=== PATIENT | male | born 1970 | race Caucasian/White ===

== ENCOUNTER 2016-12-08 08:38 | Day surgery (SDC) | payer OTHER ==
[2016-12-08] VITALS (17 sets, daily range): BP systolic 106–152; BP diastolic 60–87; PULSE 78–90; RESP 16–22; Ht 175.3 cm; Wt 104.5 kg
[~2016-12-08] VITALS: Ht 175.3 cm; Wt 104.5 kg
[2016-12-08] MEDS ORDERED: LIDOCAINE 1% (MDV) 20 ML INJ ONE (08:53)
[2016-12-08] MEDS ORDERED: MIDAZOLAM 1 MG/ML 2 ML INJ ONE (08:53)
[2016-12-08] MEDS ORDERED: HEPARIN 1000 UNITS/ML 10 ML INJ ONE (08:53)
[2016-12-08] MEDS ORDERED: VERAPAMIL 5 MG INJ ONE (08:54)
[2016-12-08] MEDS ORDERED: FENTAnyl 50 MCG/ML VIAL ONE (09:06)
[2016-12-08] MEDS ORDERED: NITROGLYCERIN (IC) 100 MCG/ML INJ ONE (09:12)
[2016-12-08] MEDS ORDERED: METO-448 PO (09:17)
[2016-12-08] MEDS ORDERED: ASPI325T4 PO (09:17)
[2016-12-08] MEDS ORDERED: PANT40TA4 PO (09:17)
[2016-12-08] MEDS ORDERED: SOD CHLORIDE 0.9% 1,000 ML IV SCH (10:15)
[2016-12-08] MEDS ORDERED: morphine 2 MG INJ IV PRN (10:30)
[2016-12-08] MEDS ORDERED: AL HYDROX/MG HYDROX/SIMETH 30 ML CUP PO PRN (10:30)
[2016-12-08] MEDS ORDERED: ACETAMINOPHEN 325 MG TAB PO PRN (10:30)
[2016-12-08] MEDS ORDERED: ONDANSETRON 4 MG INJ IV PRN (10:30)
--- NOTE | 2016-12-08 14:56 | CARRPT ---
DATE OF PROCEDURE: 12/08/2016 TYPE OF PROCEDURE: 1. Left heart catheterization. 2. Coronary angiography. 3. Left ventriculogram. ATTENDING PHYSICIAN: Mandy Vickers MD REFERRING PHYSICIAN: Dr. Reed Juarez TYPE OF ANESTHESIA: Conscious and local. INDICATION: A tly-GD-pzviygala myocardial infarction. BRIEF HISTORY AND HOSPITAL COURSE: Mr. Maradiaga is a 46-year-old male with history of hypertension wh o initially presented with complaints of substernal chest pain and ruled in for a ajw-MJ-pzveysqcv m yocardial infarction. The patient subsequently was placed on maximal medical therapy, continued to have chest pain, was brought to cardiac catheterization lab in order to assess for the possibility o f significant obstructive coronary artery disease lending to her symptoms of chest pain and subseque nt qjb-AN-ikfamdvnx myocardial infarction. PROCEDURE: After informed consent was obtained, the patient was brought to the [facility] where his right radial area was prepped and draped in the usual sterile fashion. Lidocaine 2% was infiltrated into the right radial in order to achieve adequate l ocal anesthesia. Using modified Seldinger technique, the right radial artery was cannulated and a 6 -Tajik arterial sheath was placed. A 6-Tajik JL3.5 catheter was used to cannulate the left main c oronary ostium. With contrast injection, multiple views of the left coronary arterial system were o btained. JL3.5 over a guidewire and a JR4 was used to cannulate the right coronary arterial ostium. With contrast injection, multiple views of the right coronary arterial system were obtained. JL4 was removed over a guidewire and a 6-Tajik pigtail was passed down the ascending aorta into the lef t ventricle and left ventricular end-diastolic pressure was measured. Using a power injector, 20 mL of contrast were injected opacifying the left ventricle. The pigtail catheter was then pulled back across the aortic valve to assess for significant gradient which there was not and removed. At thi s time, this completed the patient's procedure. The patient's sheath was removed and a TR band was applied. There were no noted complications. FINDINGS: 1. Coronary angiography: Left main 4 mm, no significant stenoses. Circumflex proximally 3 mm and has an ostial 20% stenosis. The remainder of the circumflex is free of significant focal stenoses. There is a mid branching obtuse marginal sub 2 mm vessel with no significant focal stenoses and a d istal branching obtuse marginal 2 mm with no significant focal stenoses. The LAD proximally is a 3. 5 mm vessel and has a 20% stenosis, mid portion. The remainder of the LAD is free of significant fo mil stenosis, is a very small caliber vessel though and just barely reaches the apex. The right cor onary artery is a large, dominant vessel, 3.5 mm with mild 10% to 20% luminal irregularities in the proximal portion, gives off a 2 mm PDA and a 2 mm posterolateral branch, each with no significant fo mil stenoses. 2. Left ventriculogram revealed a left ventriculogram mildly depressed of 45% to 50% with mild ante rolateral hypokinesis, left ventricular end diastolic pressure of 12 pre LV gram, 13 post LV gram. No significant stenosis by gradient, 1+ mitral regurgitation. TOTAL FLUOROSCOPY TIME: 2.8 minutes. TOTAL CONTRAST: 70 mL. IMPRESSION: 1. Essentially normal coronary arteries with very mild nonobstructive coronary artery disease. 2. Mildly depressed left ventricular systolic function with wall motion abnormality as above. 3. Normal left heart filling pressures. 4. No significant aortic stenosis by gradient. 5. 1+ mitral regurgitation. RECOMMENDATIONS: In light of procedure and findings at this time would: 1. Maximize medical management. 2. Aggressive risk factor reduction. 3. The patient will be admitted to the postanesthesia care unit with probable transfer back to [facility] later this afternoon for ongoing evaluation of his medical illness. Dictated By: MANDY WYLIE/NTS Conf#: [id number] DID#: [id number] CC: REED JUAREZ MD;*EndCC*
== END 2016-12-08 14:30 | disposition home or self-care (01) ==
LOC: SDS 08:38 → CCL 08:38
PROVIDERS: ATTEND Internal Medicine
DX: I21.4 Non-ST elevation (NSTEMI) myocardial infarction (principal); I25.10 Atherosclerotic heart disease of native coronary artery without angina pectoris; I10 Essential (primary) hypertension
CPT/HCPCS: 93458; C1769; C1887; J1644; J2250; J3010